=== PATIENT | male | born 1975 | race Caucasian/White ===

== ENCOUNTER 2020-05-11 09:17 | Observation (INO) | payer SELFPAY ==
[2020-05-11] VITALS (20 sets, daily range): BP systolic 102–142; BP diastolic 55–77; PULSE 69–100; RESP 11–28; TEMP 36.5–36.8; O2SAT 84–100; BMI 23.7
--- NOTE | 2020-05-11 09:28 | ED.ABDPAIN ---
HPI - Abdominal Pain General Chief Complaint: Nausea/Vomiting/Diarrhea Stated Complaint: abd pain, vomiting blood, was admitted in [place] Time Seen by Provider: 05/11/20 09:20 Source: patient Mode of arrival: Wheelchair Limitations: no limitations History of Present Illness HPI narrative: 44M smoker without significant medical history presents with multiple complaints which have been present for about a week or so, if not longer. He has significant left hip pain in the absence of injury. This pain has been gradually worsening and he denies any significant overuse or memorable injury. He states his pain is an 8/10 with ambulation or motion. He denies any numbness, tingling or weakness. Denies any back pain. He denies any numbness in his groin or trouble controlling bowel or bladder. He states that he was recently out of the country with his family to spread his father's ashes at their property in [place]. During this visit his mother, whom is in healthcare, encouraged him to seek medical care and he was apparently seen at a facility, received an MRI and orthopedic consultation suggesting left hip a vascular necrosis. Patient apparently had an episode of bright red emesis when he was leaving the above-stated evaluation and though they desperately wanted to admit him and performed endoscopy he demanded to leave and fly home to [facility]. He states he has had generalized abdominal discomfort and multiple episodes of hematemesis and bright red blood per his rectum since. He is not dizzy nor weak or lightheaded. He denies any history of alcohol or street drugs. He denies any history of bleeding ulcers or liver trouble. He takes no blood thinners MD complaint: abdominal pain, flank pain and other Onset (ago): week(s) Pain Consistency: constant Location: diffuse Severity: moderate Quality: cramping and aching Relieving factors: nothing Exacerbating factors: nothing Context: foreign travel Associated symptoms: nausea, vomiting, hematemesis and hematochezia Related Data Allergies Allergy/AdvReac Type Severity Reaction Status Date / Time iodine Allergy Verified 05/11/20 15:37 metoclopramide [From Reglan] Allergy Verified 05/11/20 15:37 prochlorperazine Allergy Verified 05/11/20 15:37 [From Compazine] Review of Systems Constitutional Constitutional: Denies chills, Denies fatigue, Denies fever(s), Denies frequent falls, Denies lethargy and Denies weakness Eyes Eyes: Denies change in vision, Denies eye discharge, Denies irritation and Denies loss of vision ENT Ears, Nose, Mouth, and Throat: Denies change in voice, Denies dizziness, Denies neck pain, Denies sore throat and Denies throat swelling Cardiovascular Cardiovascular: Denies chest pain, Denies irregular heart rhythm, Denies lightheadedness, Denies palpitations, Denies dyspnea, Denies dyspnea on exertion and Denies orthopnea Respiratory Respiratory: Denies cough, Denies dyspnea, Denies dyspnea on exertion and Denies wheezing Gastrointestinal Gastrointestinal: Reports abdominal pain, Denies change in bowel habits, Denies diarrhea, Reports nausea, Reports vomiting and Reports hematemesis Musculoskeletal Musculoskeletal: Reports abnormal gait, Reports limited range of motion, Denies neck pain and Denies numbness Integumentary/Breasts Skin/Breast: Denies pruritus, Denies erythema, Denies rash and Denies wounds Neurologic Neurologic: Reports abnormal gait, Denies behavioral changes, Denies confusion, Denies dizziness, Denies frequent falls, Denies loss of vision, Denies numbness and Denies weakness Psychiatric Psychiatric: Denies anxiety, Denies behavioral changes, Denies confusion, Denies depression, Denies homicidal ideation and Denies suicidal ideation Endocrine Endocrine: Denies fatigue, Denies flushing and Denies palpitations Hematologic/Lymphatic Hematologic/Lymphatic: Denies easy bruising Allergic/Immunologic Allergic/Immunologic: Denies urticaria, Denies throat swelling and Denies wheezing Patient History Medical History (Updated 05/11/20 @ 16:13 by Uziel Vasquez MD) Avascular necrosis of bones of both hips (Acute) Chronic back pain greater than 3 months duration (Acute) Depression (Acute) Social History Smoking Status: Former smoker Smoking Status: Former smoker alcohol intake frequency: 0-2 drinks per day Substance Use Type: does not use Exam Narrative Exam Narrative: GENERAL: [44] year old patient appears stated age. Well-nourished, well-developed patient, in mild distress. Anxious, rapid pressured speech HEAD: Atraumatic. Normocephalic. EYES: Pupils equal round and reactive. Extraocular motions intact. No scleral icterus. No injection or drainage. ENT: Nose without bleeding, purulent drainage. Throat without erythema, tonsillar hypertrophy or exudate. Airway patent. NECK: Trachea midline. Non tender CARDIOVASCULAR: Regular rate and rhythm without murmurs, gallops, or rubs. RESPIRATORY: Clear to auscultation. Breath sounds equal bilaterally. No wheezes, rales, or rhonchi. GASTROINTESTINAL: Abdomen soft, generalized tenderness, nondistended. RECTAL: no hemorrhoid or fissure. Bright red blood on exam, no melena. EXTREMITIES: No edema or joint tenderness. Left hip pain with passive or active range of motion. No obvious objective findings BACK: Nontender without deformity or crepitance. No flank tenderness. NEURO: AOx3. SKIN: No rash or erythema of visible areas, multiple excoriations Initial Vital Signs Initial Vital Signs: Vital Signs Temperature 97.7 F 05/11/20 09:30 Pulse Rate 100 H 05/11/20 09:30 Respiratory Rate 18 05/11/20 09:30 Blood Pressure 142/77 H 05/11/20 09:30 Pulse Oximetry 98 05/11/20 09:30 Course Orders Ordered: ED Orders 05/11/20 10:26 CT abdomen pelvis w con Stat 05/11/20 10:42 Urine Drug Screen, Rapid Stat 05/11/20 12:03 Consult to SALES CORRESPONDENT - Protective Services Case Worker Stat 05/11/20 15:45 Hemoglobin and Hematocrit Stat Lactated Ringer's (Lactated Ringers) 1,000 mls @ 42 mls/hr IV CONT CHANI Lactated Ringer's (Lactated Ringers) 1,000 mls @ 150 mls/hr IV CONT CHANI Last Infusion: 05/11/20 17:23 Dose: 150 mls/hr Documented by: Admin: 05/11/20 16:56 Dose: 150 mls/hr Documented by: BTONER Discontinued Medications Diphenhydramine HCl (Benadryl) 25 mg IV NOW ONE Stop: 05/11/20 11:40 Last Admin: 05/11/20 11:53 Dose: 25 mg Documented by: NIKKI Diphenhydramine HCl (Benadryl) 25 mg IV NOW ONE Stop: 05/11/20 12:51 Last Admin: 05/11/20 12:55 Dose: 25 mg Documented by: NIKKI Hydromorphone HCl (Dilaudid) 0.5 mg IV NOW ONE Stop: 05/11/20 10:39 Last Admin: 05/11/20 10:49 Dose: 0.5 mg Documented by: NIKKI Hydromorphone HCl (Dilaudid) 0.5 mg IV NOW ONE Stop: 05/11/20 13:48 Last Admin: 05/11/20 13:57 Dose: 0.5 mg Documented by: NIKKI Hydromorphone HCl (Dilaudid) 1 mg IV NOW ONE Stop: 05/11/20 15:23 Last Admin: 05/11/20 15:33 Dose: 1 mg Documented by: NIKKI Sodium Chloride (Normal Saline 0.9%) 1,000 mls @ 1,000 mls/hr IV BOLUS ONE Stop: 05/11/20 10:28 Last Infusion: 05/11/20 11:32 Dose: 0 mls/hr Documented by: Admin: 05/11/20 09:34 Dose: 1,000 mls/hr Documented by: NIKKI Famotidine (Pepcid) 20 mg in 50 mls @ 200 mls/hr IV NOW ONE Stop: 05/11/20 12:01 Last Infusion: 05/11/20 12:06 Dose: 0 mls/hr Documented by: Admin: 05/11/20 11:53 Dose: 200 mls/hr Documented by: NIKKI Methylprednisolone (Solu-Medrol 125 Mg Vial) 125 mg IV NOW ONE Stop: 05/11/20 11:40 Last Admin: 05/11/20 11:53 Dose: 125 mg Documented by: NIKKI Ondansetron HCl (Zofran) 4 mg IV NOW ONE Stop: 05/11/20 10:39 Last Admin: 05/11/20 10:49 Dose: 4 mg Documented by: NIKKI Pantoprazole Sodium (Protonix) 40 mg IV NOW ONE Stop: 05/11/20 09:30 Last Admin: 05/11/20 09:34 Dose: 40 mg Documented by: NIKKI Consultations Consultation #1: discussion with client application support engineer Gen Surgery given GI Bleed. He will take to OR for scope after COVID results Consultation #2: ortho consulted regarding AVN of B/L hips. Pain control as needed is only need for now. Consultation #3: Hospitalist happy to accept Vital Signs Vital signs: Vital Signs - 8 hr 05/11/20 11:00 05/11/20 11:39 05/11/20 11:40 Pulse Rate 93 H 91 H 91 H Respiratory Rate 28 H 25 H Blood Pressure 124/70 121/76 Pulse Oximetry 96 98 05/11/20 11:42 05/11/20 12:00 05/11/20 12:30 Pulse Rate 89 90 79 Respiratory Rate 18 15 25 H Blood Pressure 117/76 102/57 L 104/55 L Pulse Oximetry 100 96 95 05/11/20 13:00 05/11/20 13:30 Pulse Rate 74 74 Respiratory Rate 13 17 Blood Pressure 106/65 107/66 Pulse Oximetry 95 96 MDM - Abdominal Pain Lab Data Result diagrams: 05/11/20 15:45 05/11/20 09:40 Labs: Lab Results 05/11/20 05/11/20 05/11/20 Range/Units 09:40 09:40 10:42 WBC 5.3 (4.5-11.0) X10^3/uL RBC 4.07 L (4.5-5.9) X10^6/uL Hgb 11.2 L (13.5-17.5) g/dL Hct 34.2 L (41-53) % MCV 84.1 (80-100) fL MCH 27.5 (26-34) PG MCHC 32.7 (30-36) % RDW 16.6 H (11.6-14.8) % Plt Count 329 (150-400) X10^3/uL Neut % (Auto) 50.9 (50-75) % Lymph % (Auto) 25.3 (25-40) % Pacific % (Auto) 14.8 H (3-14) % Eos % (Auto) 8.5 H (2-4) % Baso % (Auto) 0.5 (0-2) % Neut # (Auto) 2700 (4530-6751) /uL Lymph # (Auto) 1300 (7355-2974) /uL Pacific # (Auto) 800 (0-900) /uL Eos # (Auto) 400 (0-450) /uL Baso # (Auto) 0 (0-100) /uL Sodium 135 L (137-145) mmol/L Potassium 4.4 (3.4-5.1) mmol/L Chloride 99 (98-107) mmol/L Carbon Dioxide 26 (22-32) mmol/L BUN 17 (9-20) mg/dL Creatinine 0.61 L (0.66-1.25) mg/dL Estimated GFR > 60.0 (>60) mL/min BUN/Creatinine Ratio 27.9 H (6-22) Glucose 136 H (70-100) mg/dL Calcium 10.1 (8.4-10.2) mg/dL Total Bilirubin 0.5 (0.2-1.3) mg/dL AST 55 (17-59) IU/L ALT 21 (<50) IU/L Alkaline Phosphatase 95 (38-126) U/L Total Protein 8.7 H (6.3-8.2) g/dL Albumin 4.9 (3.5-5.0) g/dL Globulin 3.8 (1.7-4.1) g/dL Albumin/Globulin Ratio 1.3 (1.0-2.8) Lipase 20 L (23-300) U/L U Opiates 300ng/mL cut Negative (Negative) Ur Oxycodone Screen Positive H (Negative) Urine Methadone Screen Negative (Negative) Ur Barbiturates Screen Negative (Negative) U Tricyclic Antidepress Negative (Negative) Ur Phencyclidine Scrn Negative (Negative) Ur Amphetamines Screen Negative (Negative) U Methamphetamines Scrn Negative (Negative) Ur MDMA Scrn (Ecstasy) Negative (Negative) U Benzodiazepines Scrn Positive H (Negative) Urine Cocaine Screen Negative (Negative) U Marijuana (THC) Screen Negative (Negative) COVID-19 PCR (Negative) 05/11/20 05/11/20 Range/Units 15:21 15:45 WBC (4.5-11.0) X10^3/uL RBC (4.5-5.9) X10^6/uL Hgb 10.9 L (13.5-17.5) g/dL Hct 33.1 L (41-53) % MCV (80-100) fL MCH (26-34) PG MCHC (30-36) % RDW (11.6-14.8) % Plt Count (150-400) X10^3/uL Neut % (Auto) (50-75) % Lymph % (Auto) (25-40) % Pacific % (Auto) (3-14) % Eos % (Auto) (2-4) % Baso % (Auto) (0-2) % Neut # (Auto) (8554-6403) /uL Lymph # (Auto) (6597-9536) /uL Pacific # (Auto) (0-900) /uL Eos # (Auto) (0-450) /uL Baso # (Auto) (0-100) /uL Sodium (137-145) mmol/L Potassium (3.4-5.1) mmol/L Chloride (98-107) mmol/L Carbon Dioxide (22-32) mmol/L BUN (9-20) mg/dL Creatinine (0.66-1.25) mg/dL Estimated GFR (>60) mL/min BUN/Creatinine Ratio (6-22) Glucose (70-100) mg/dL Calcium (8.4-10.2) mg/dL Total Bilirubin (0.2-1.3) mg/dL AST (17-59) IU/L ALT (<50) IU/L Alkaline Phosphatase (38-126) U/L Total Protein (6.3-8.2) g/dL Albumin (3.5-5.0) g/dL Globulin (1.7-4.1) g/dL Albumin/Globulin Ratio (1.0-2.8) Lipase (23-300) U/L U Opiates 300ng/mL cut (Negative) Ur Oxycodone Screen (Negative) Urine Methadone Screen (Negative) Ur Barbiturates Screen (Negative) U Tricyclic Antidepress (Negative) Ur Phencyclidine Scrn (Negative) Ur Amphetamines Screen (Negative) U Methamphetamines Scrn (Negative) Ur MDMA Scrn (Ecstasy) (Negative) U Benzodiazepines Scrn (Negative) Urine Cocaine Screen (Negative) U Marijuana (THC) Screen (Negative) COVID-19 PCR Negative (Negative) Point of care testing: Urine Dip Bedside Urine Glucose Negative Bedside Urine Bilirubin - Negative Bedside Urine Ketone - Negative Urine Specific [place] 1.015 Bedside Urine Occult Blood - Negative Bedside Urine pH 6.0 Bedside Urine Protein - Negative Bedside Urine Urobilinogen - Negative Bedside Urine Nitrite - Negative Bedside Urine Leukocytes - Negative Esterase Critical Care Time Critical Care Time Critical Care Time: Yes Total Critical Care Time: 30 Attestation: The high probability of a clinically significant, sudden or life threatening deterioration of the [GI/CV] system(s) required my full and direct attention, intervention and personal management. The aggregate critical care time was [30] minutes. This time is in addition to time spent performing reported procedures but includes the following: [X] Data Review and interpretation [X] Patient assessment and monitoring of vital signs [X] Documentation [X] Medication orders and management Discharge Plan Departure Clinical Impression: Acute GI bleeding Admit Date/Time: 05/11/20 17:36 Admit Provider: Manuela Cuellar
[2020-05-11] MEDS: PANTOPRAZOLE 40 MG VIAL IV ×2 (09:34→21:00)
[2020-05-11] MEDS: SODIUM CHLORIDE 0.9% 1,000 ML 1000 ML IV (09:34)
[2020-05-11 10:01] LABS: Add Manual Diff / Slide Review NO; Basophils Absolute Auto 0 /uL (0-100); Basophils Percent Auto 0.5 % (0-2); Eosinophils Absolute Auto 400 /uL (0-450); Eosinophils Percent Auto 8.5 % (2-4); Hematocrit 34.2 % (41-53); Hemoglobin 11.2 g/dL (13.5-17.5); Lymphocytes Absolute Auto 1300 /uL (1100-4500); Lymphocytes Percent Auto 25.3 % (25-40); Mean Corpuscular HGB Conc 32.7 % (30-36); Mean Corpuscular Hemoglobin 27.5 PG (26-34); Mean Corpuscular Volume 84.1 fL (80-100); Monocytes Absolute Auto 800 /uL (0-900); Monocytes Percent Auto 14.8 % (3-14); Neutrophils Absolute Auto 2700 /uL (1500-7000); Neutrophils Percent Auto 50.9 % (50-75); Platelet Count 329 X10^3/uL (150-400); Red Blood Cell Count 4.07 X10^6/uL (4.5-5.9); Red Cell Distribution Width 16.6 % (11.6-14.8); White Blood Cell Count 5.3 X10^3/uL (4.5-11.0)
--- NOTE | 2020-05-11 10:05 | PC.NURSE ---
Pt requesting to speak to proved.Dr dee in room speaking to pt.
[2020-05-11 10:07] LABS: Alanine Aminotransferase 21 IU/L (<50); Albumin 4.9 g/dL (3.5-5.0); Albumin Globulin Ratio 1.3 (1.0-2.8); Alkaline Phosphatase 95 U/L (38-126); Aspartate Aminotransferase 55 IU/L (17-59); BUN Creatinine Ratio 27.9 (6-22); Bilirubin Total 0.5 mg/dL (0.2-1.3); Blood Urea Nitrogen 17 mg/dL (9-20); Calcium 10.1 mg/dL (8.4-10.2); Carbon Dioxide 26 mmol/L (22-32); Chloride 99 mmol/L (98-107); Estimated Glomerular Filt Rate > 60.0 mL/min (>60); Globulin 3.8 g/dL (1.7-4.1); Glucose 136 mg/dL (70-100); Lipase 20 U/L (23-300); Potassium 4.4 mmol/L (3.4-5.1); Sodium 135 mmol/L (137-145); Total Protein 8.7 g/dL (6.3-8.2)
[2020-05-11 10:14] LABS: HEMOLYSIS 55 (0-50)
--- NOTE | 2020-05-11 10:26 | DI.CT.S_ITS ---
PROCEDURE: CT ABDOMEN PELVIS W CON INDICATIONS: severe abdominal pain with vomiting TECHNIQUE: After the administration of intravenous contrast, 5 mm thick sections acquired from the diaphragm to the symphysis. 5 mm coronal and sagittal reformats were acquired. For radiation dose reduction, the following was used: automated exposure control, adjustment of mA and/or kV according to patient size. COMPARISON: None. FINDINGS: Image quality: There are motion artifacts. ABDOMEN: Lung bases: Lung bases are clear. Heart size is normal. Solid organs: Liver is normal in size and enhancement. Gallbladder is normal. Biliary system is non dilated. Pancreas enhances normally. Spleen is normal in size and enhancement. No adrenal nodules. There are bilateral renal stones. Kidneys demonstrate normal size and enhancement, without hydronephrosis. Peritoneum and bowel: Appendix is absent. There is a moderate to large amount of stool in colon. Bowel loops demonstrate normal wall thickness and caliber. No free fluid or air. Nodes and vessels: No retroperitoneal or mesenteric adenopathy by size criteria. Aorta and inferior vena cava are normal in size. Miscellaneous: No ventral hernias. PELVIS: Genitourinary: Bladder wall thickness is normal. Miscellaneous: No inguinal hernias or adenopathy. Bones: Mixed lucency and sclerosis in the femoral heads bilaterally consistent with avascular necrosis. No vertebral body compression fractures. IMPRESSION: 1. No acute process in abdomen or pelvis. 2. Nephrolithiasis bilaterally. No hydronephrosis. 3. A moderate to large amount of stool in colon. 4. Avascular necrosis of the femoral heads bilaterally. The result was discussed with Dr. Moore. Dictated by: Brooke Ta M.D. on 05/11/2020 at 11:54 Approved by: Brooke Ta M.D. on 05/11/2020 at 13:12
--- NOTE | 2020-05-11 10:43 | PC.NURSE ---
isotope technologist in room to take pt to CT. Pt refused at this time saying he was in too much pain and nauseated. Pt states that you aren't doing anything to help. He said I already know whats wrong but this pain is the worst pain of my life and you aren't doing anything to help it. Dr Moore aware
--- NOTE | 2020-05-11 10:45 | PC.NURSE ---
Pt requesting to speak to powerhouse attendant. parris Posada in room speaking with pt
[2020-05-11] MEDS: ONDANSETRON 4 MG/2 ML INJ IV (10:49)
[2020-05-11] MEDS: HYDROMORPHONE 0.5 MG INJ IV ×2 (10:49→13:57)
[2020-05-11 11:15] LABS: UR Morphine/Opiate cutoff 300 Negative (Negative); Ur Creatinine Normal (Normal); Ur Specific Gravity Normal (Normal); Urine Amphetamines Negative (Negative); Urine Cocaine Negative (Negative); Urine Methamphetamines Negative (Negative); Urine Phencyclidine Negative (Negative); Urine Tetrahydrocannabinol Negative (Negative); Urine pH Normal (Normal)
[2020-05-11 11:16] LABS: Urine Barbiturates Negative (Negative); Urine Benzodiazepines Positive (Negative); Urine MDMA Negative (Negative); Urine Methadone Negative (Negative); Urine Oxycodone Positive (Negative); Urine Tricyclic Antidepressant Negative (Negative)
--- NOTE | 2020-05-11 11:25 | PC.NURSE ---
pt requested to speak with powerhouse operator, I entered patient's room upon hearing request. Pt stated that he was upset about not getting pain medication, that his father recently after multiple visits to the hospital without proper treatment, and he feels he is not being listened to. During my 25 min conversation with the patient, he disclosed that he has recently returned from [place] where he was helping his mother with a rental, his mother is a director at formerly [facility], he has been on a pain contract with Dr Tiny Castaneda (sp), he had an MRI in [place] that resulted in a diagnosis of avascular necrosis but does not have a cd of the [employer], and has been vomiting blood for months . Pt is tangential in his speech and difficult to follow. Pt stated his primary care provider was Tiny Castaneda and became upset at the thought of the provider being called. I explained the benefits of contacting pcps and how their input can be valuable in the patient's care. Pt requested multiple times for her not to be called, stating he has not seen her in many years and there would be no benefit. When asked who was prescribing his current medications he gave multiple answers and then stated he is not seeing anything. Patient had 3 reasons for checking in, nausea, vomitting blood, and pain in his hips. I discussed with patient what we are doing, including medications that are being given, for the issues he is expereince. I let patient know the CT that is ordered is needed to continue his care. Pt became upset shortly after stating it was unreasonable for him to wait [address] to open up. I expressed we are going as quick as we can.
--- NOTE | 2020-05-11 11:45 | PC.NURSE ---
Addendum entered by Miracle Shrestha R.N. 05/11/20 12:08: Pt informed staff after returning from CT that he had a hx of allergic reaction with CT contrast but forgot to tell us. He stated When you asked me if I had any allergies i was only thinking about medication allergies. Original Note: Pt returned from CT and told staff that he was having an allergic reaction. Pt c/o itching of face and throat. Pt able to swallow and there is not any swelling noted of throat or tongue. Pts lungs clear. Dr Moore aware and ordered allergic reaction medications.
[2020-05-11] MEDS: methylPREDNISolone 125 MG/2 ML VIAL IV (11:53)
[2020-05-11] MEDS: diphenhydrAMINE 50 MG/ML VIAL 25 MG IV ×2 (11:53→12:55)
[2020-05-11] MEDS: FAMOTIDINE 20 MG/50 ML PIGGYBACK 200 MG IV (11:53)
--- NOTE | 2020-05-11 11:58 | PC.NURSE ---
Pt hit call light,I entered room and asked how could I help him. he stated I need more benadryl. Pt stated I told you that i needed 50mg benadryl,you only gave me 25mg. . I informed him that we don't normally give 50mg to start off. Pt then stated Well I guess I should have just told you to start wtih 50mg. When this happened before they gave me 50mg of benadryl. Dr Moore aware. I asked him if he is getting worse he stated no but I'm not better yet.
--- NOTE | 2020-05-11 12:23 | PC.NURSE ---
Pt requesting more pain medications. Dr Moore aware
--- NOTE | 2020-05-11 12:48 | PC.NURSE ---
Pt pushed call light, i entered room to see what he needed. Pt states that he still needs something for pain. I informed him that the provider is aware and as soon as something is ordered i would bring it in. Pt stated my throat is getting worse and you all don't even care. I informed him that twice we have come in after he hit his call light and he told us he wanted something for pain and mentioned nothing of his throat getting worse,rather he stated that its just not any better.
--- NOTE | 2020-05-11 12:56 | PC.NURSE ---
While giving pt second dose of benadryl pt stated that it alfaro. I immidiately stopped pushing it. I was attempting to flush the IV to check for patency when pt stated just give the rest of it,you almost gave it all anyway. I informed him that I needed to check IV patency first. I flushed the IV and pt denied pain with flushing. Gave the remainder of benadryl IV. Pt denied pain with remainder of IV
--- NOTE | 2020-05-11 15:30 | PM.CN ---
History of Present Illness Consult details Date Patient Seen: 05/11/20 Time Patient Seen: 15:30 Chief complaint: abd pain, vomiting blood, was admitted in [place] Reason for consult: Hematemesis Requesting provider: Saúl Moore Narrative: The patient is a gentleman who was traveling in [place] due to his father's . He apparently developed intestinal bleeding there and was hospitalized and has come home and presents with multiple episodes of hematemesis and blood in his stool around normal brown stool. The vomiting is a little brown but also contains bright red blood. He has been having a lot of abdominal pain especially upper abdominal pain. He has never had GI and bleeding before. He is not on any blood thinners. He does not take nonsteroidal anti-inflammatory agents or any supplements that might cause him to bleed. He has not been noted to have hematemesis in the ER where he has been for 6 hours awaiting test results and evaluation. He apparently declined repeat hematocrit after fluids. Meds Home Medications and Allergies Allergies Allergy/AdvReac Type Severity Reaction Status Date / Time iodine Allergy Verified 05/11/20 15:37 metoclopramide [From Reglan] Allergy Verified 05/11/20 15:37 prochlorperazine Allergy Verified 05/11/20 15:37 [From Compazine] Review of Systems Review of Systems Narrative: Patient has occasional visual changes that are fleeting. This is principally double vision as best I can tell. He blinks and it goes away. No pain in his eyes or earaches, sore throat, tooth aches, trouble swallowing. No asthma or cough. No unusual shortness of breath. No chest pain or murmurs. Normally has a good appetite and has normal brown bowel movements. No dysuria hematuria or history kidney stones. He has chronic left hip pain and more recent right hip pain. He has been told he has avascular necrosis. He describes a jerking disorder that he has in his mother slap same and he responds and it stops. Has not had syncope. He has some numbness in his arms and hands at times. He has chronic back pain related to a work related injury. He opted to take a financial settlement rather than have surgery. Suffers from anxiety and depression. Is on medicine his shins for same. Exam Vital Signs (past 8 hours): - 05/11/20 09:30 05/11/20 09:50 05/11/20 10:00 Temperature 97.7 F Pulse Rate 100 H 97 H 98 H Respiratory Rate 18 17 28 H Blood Pressure 142/77 H Pulse Oximetry 98 96 94 05/11/20 10:30 05/11/20 11:00 05/11/20 11:39 Temperature Pulse Rate 92 H 93 H 91 H Respiratory Rate 23 28 H Blood Pressure 124/70 Pulse Oximetry 95 96 05/11/20 11:40 05/11/20 11:42 05/11/20 12:00 Temperature Pulse Rate 91 H 89 90 Respiratory Rate 25 H 18 15 Blood Pressure 121/76 117/76 102/57 L Pulse Oximetry 98 100 96 05/11/20 12:30 05/11/20 13:00 05/11/20 13:30 Temperature Pulse Rate 79 74 74 Respiratory Rate 25 H 13 17 Blood Pressure 104/55 L 106/65 107/66 Pulse Oximetry 95 95 96 Oxygen Delivery Method Room Air Narrative Exam Narrative: Cooperative no apparent distress. Thought processes are little confabulated. His eyes are nonicteric. Pupils equal round reactive to light. Conjunctivae are pink. Ears without lesion. Nasal septum midline. Oral mucosa is pink moist no open lesions. Teeth are intact. He has a lesion in his left upper lip near midline. It is in a regular sore that involves both of the lip and the skin above it. There is some induration there but no pus and I appreciate no abscess. His neck is supple. I feel no nodes in the neck or supraclavicular areas. Trachea is midline mobile. Thyroid is not enlarged. Lungs are clear to auscultation without rales or rhonchi. Equal percussion. Heart regular rate and rhythm without murmur gallop. No heave lift or thrill. Abdomen is scaphoid. Difficult to tell that is tender. Hyperactive bowel sounds. No hernias appreciated. Liver and spleen are not obviously enlarged. Patient's testes are without mass there is no recurrence of her hernia but he was examined in the supine position. There are no penile lesions. Rectal is reported by the ER physician to have bright red blood on the finger tip. Patient is alert and oriented but somewhat irritable. It is difficult him it for him to lay still and his conversations sometime wonders off topic. Extremities there is no cyanosis clubbing or edema. Normal pulses 2+ at the wrist. No obvious bony abnormality on palpation. His quadriceps e-mail little bit under developed. Skin has multiple small ulcers on the extremities torso and scrotum. This is in addition to the 1 on the lip. No discoloration. No abscesses. All these ulcerations are dry. Objective Imaging CT scan - abdomen: My impression: Patient has a large amount of intestinal contents from his stomach distally. He has some kidney stones and apparently has a vascular necrosis of his hips Labs Result Diagrams: 05/11/20 09:40 05/11/20 09:40 Labs: Laboratory Results - last 24 hr 05/11/20 05/11/20 05/11/20 09:40 09:40 10:42 WBC 5.3 RBC 4.07 L Hgb 11.2 L Hct 34.2 L MCV 84.1 MCH 27.5 MCHC 32.7 RDW 16.6 H Plt Count 329 Neut % (Auto) 50.9 Lymph % (Auto) 25.3 Hudspeth % (Auto) 14.8 H Eos % (Auto) 8.5 H Baso % (Auto) 0.5 Neut # (Auto) 2700 Lymph # (Auto) 1300 [place] # (Auto) 800 Eos # (Auto) 400 Baso # (Auto) 0 Sodium 135 L Potassium 4.4 Chloride 99 Carbon Dioxide 26 BUN 17 Creatinine 0.61 L Estimated GFR > 60.0 BUN/Creatinine Ratio 27.9 H Glucose 136 H Calcium 10.1 Total Bilirubin 0.5 AST 55 ALT 21 Alkaline Phosphatase 95 Total Protein 8.7 H Albumin 4.9 Globulin 3.8 Albumin/Globulin Ratio 1.3 Lipase 20 L U Opiates 300ng/mL cut Negative Ur Oxycodone Screen Positive H Urine Methadone Screen Negative Ur Barbiturates Screen Negative U Tricyclic Antidepress Negative Ur Phencyclidine Scrn Negative Ur Amphetamines Screen Negative U Methamphetamines Scrn Negative Ur MDMA Scrn (Ecstasy) Negative U Benzodiazepines Scrn Positive H Urine Cocaine Screen Negative U Marijuana (THC) Screen Negative Assessment & Plan Assessment and plan (1) Avascular necrosis of bones of both hips: Problem details: Recommend orthopedic consult Status: Acute (2) Acute GI bleeding: Problem details: Planning to do an EGD. Awaiting the results of his COVID testing given his recent travel. Waiting repeat hematocrit. Status: Acute (3) Depression: Problem details: Recommend continuation of meds Status: Acute (4) Anxiety: Problem details: Recommend continuation of meds Status: Acute (5) Chronic back pain greater than 3 months duration: Problem details: Recommend orthopedic evaluation Status: Acute
[2020-05-11] MEDS: HYDROMORPHONE 1 MG INJ IV ×2 (15:33→20:48)
--- NOTE | 2020-05-11 15:38 | PC.NURSE ---
Went to pts room to give him IV dilaudid. Pt stated, thats not reglan or compazine is it? I told him no that it was dilaudid and asked him why he was saying that. He stated I'm allergic to them. I asked him why he didn't tell us that when we asked him if he had any allergies. He said I told you the other girl that at triage. I informed him that I was in the room when he was being triaged and he said he wasn't allergic to anything. Updated allergies in medical record
[2020-05-11 15:54] LABS: Hematocrit 33.1 % (41-53); Hemoglobin 10.9 g/dL (13.5-17.5)
--- NOTE | 2020-05-11 16:15 | PM.PREOP ---
Pre-operative Note COVID-19 COVID-19 status: Result pending Interval Note History & Physical reviewed/Exam performed by Physician: Yes Changes to H&P: No
--- NOTE | 2020-05-11 16:45 | PC.NURSE ---
The patient wanted me to tell the dr his throat was itchy. i reported that to dr dee, no new orders noted. i let the patient know i had no new orders yet. as i closed the door he asked for a phone and what time is surgery. i said i'll check closed the door and he yelled kameron footeot
[2020-05-11 16:46] LABS: COVID19 -Nasal RAPID Negative (Negative)
--- NOTE | 2020-05-11 16:49 | PC.NURSE ---
provided patient a landline phone.
[2020-05-11] MEDS: LACTATED RINGERS 1,000 ML 150 ML IV (16:56)
--- NOTE | 2020-05-11 17:58 | DI.RAD.S_ITS ---
PROCEDURE: XR CHEST 1V INDICATIONS: central line placement TECHNIQUE: One view of the chest was acquired. COMPARISON: None. FINDINGS: Surgical changes and devices: Left subclavian central venous catheter tip is in upper SVC. Lungs and pleura: Lungs are clear. No pleural effusions or pneumothorax. Mediastinum: Mediastinal contours appear normal. Heart size is normal. Bones and chest wall: No suspicious bony lesions. Overlying soft tissues appear unremarkable. IMPRESSION: Left-sided central venous catheter tip is in SVC. No pneumothorax. Dictated by: Shahab Calzada M.D. on 05/11/2020 at 18:16 Approved by: Shahab Calzada M.D. on 05/11/2020 at 18:16
[2020-05-11] MEDS: LACTATED RINGERS 1,000 ML 42 ML IV (18:00)
--- NOTE | 2020-05-11 18:21 | PM.OP.ENDO ---
Operative Date/Time/Diagnoses Date of procedure: 05/11/20 Time of procedure: 18:22 Pre-op diagnosis: Upper GI bleed by history Post-op diagnosis: same (Mild gastritis in the area of the pyloric channel. No source of bleeding from his upper tract is seen.) Procedure & Clinicians Study performed: Placement of left subclavian central venous catheter and upper GI endoscopy (EGD) Same procedure as scheduled: No (Subclavian placement added because the patient had no peripheral IV access.) Indications: Determine source of hematemesis described in his history Surgeon: Uziel Vasquez Procedure Notes SCOAP/Timeout: Performed Procedure in detail: After attempting to place IVs in his arms and feet it was clear that there were no sites. An attempt at a left internal jugular also failed as the vein appeared to be thrombosed. He had a sore in his right neck. Therefore I decided to place a left subclavian catheter. Area was prepped and draped in a sterile fashion. Local anesthetic was infiltrated beneath the left clavicle and under it. Needle was inserted on the 2nd attempt into the subclavian vein. Guidewire was passed through the syringe and needle and the syringe and needle were removed. A small daphnie was made in the skin adjacent to the guidewire and a dilator was passed over it and removed. The catheter is then passed over the guidewire to a depth of 15 cm in the guidewire was removed leaving the catheter in place. We aspirated and flushed all 3 lines without difficulty. The line was secured to the chest wall with 3 0 silk sutures. Dressing was applied. Chest x-ray was performed immediately and showed the line to be in the superior vena cava with no evidence of a pneumothorax. The patient then underwent general endotracheal anesthesia to protect his airway. CT scan preoperatively showed a large dilated stomach full of contents. Bite block was inserted adjacent to the ET tube and the endoscope Endoscope was passed through it. The esophagus was normal. GE junction noted at the 40 cm cornel from the incisors. I saw no evidence of any inflammation of the esophagus or of varices. The stomach insufflated well. There was no blood within it. There was mild inflammation near the pyloric channel. Carefully examining this area however I could not identify an ulcer. The duodenum was absolutely pristine looking to the 4th part. The scope was gradually brought back into the stomach and the duodenal bulb examined again and I still saw no lesions. The pylorus was examined again and it was only mildly inflamed. I carefully examined the incisura and the proximal stomach and both were normal in appearance. Scope was straightened the stomach re-examined and then ran the scope was removed. No additional findings of the esophagus. The patient was extubated and taken the recovery area in good condition. Scope withdrawal time: Not applicable Sedation minutes: 0 (General anesthesia) Findings: gastritis (Very mild and not the source of bleeding) Specimen(s): none sent Complications: none Post-procedure Recommendations: Other recommendation (Will prep for colonoscopy) Plan for aftercare: Admitting to Medicine for lower GI workup Disposition: PACU
[2020-05-11] MEDS: fentaNYL 100 MCG/2 ML INJ IV (19:08)
--- NOTE | 2020-05-11 19:32 | SUR.PREOP ---
Patient is continuing to yell at nurse, frustrated, demanding pain medications. This nurse has told patient multiple times that he has pain medications ordered for the floor. This nurse explained to patient that he has valium, dilaudid and oxycodone ordered for floor. Patient still states that that's not enough pain medication, that's not enough time. Patient states that he is going to call the news station, that he needs something for anxiety. Patient continues to be agitated and refuses to listen to the nursing staff. Security and charge nurse called for assistance. Patient states that I'm not going upstairs until I get relief from my hip pain. Advised patient that yes, he is going upstairs so that the nurses can transfer his orders for pain medication on the inpatient status. Security and occupational health nursing director to PACU to assist for transfer.
--- NOTE | 2020-05-11 20:17 | SUR.PHASEI ---
1999) late entry: After transferring patient to ICU, rm 227, patient continues to yell at nursing staff, arguing, demanding pain medication, demanding his anxiety medication. Patient states that he is going to call my mom and report nursing staff. Security remains at bedside to assist. Any attempts to explain to patient the process for medication administration are met with anger and refusal to listen to nursing staff. Francine omnterroso called for combativeness. While nurses are attempting to receive a full report regarding events regarding patient's history, patient gets out of bed and stands on his feet. Assisted patient back to bed. ICU nursing staff receiving patient.
[2020-05-11] MEDS: DEXTROSE 5%-LACTATED RINGERS 1,000 ML 100 ML IV (20:33)
[2020-05-11 20:39] LABS: Add Manual Diff / Slide Review NO; Basophils Absolute Auto 0 /uL (0-100); Basophils Percent Auto 0.2 % (0-2); Eosinophils Absolute Auto 0 /uL (0-450); Eosinophils Percent Auto 0.2 % (2-4); Hematocrit 33.5 % (41-53); Hemoglobin 10.9 g/dL (13.5-17.5); Lymphocytes Absolute Auto 700 /uL (1100-4500); Lymphocytes Percent Auto 17.7 % (25-40); Mean Corpuscular HGB Conc 32.6 % (30-36); Monocytes Absolute Auto 100 /uL (0-900); Monocytes Percent Auto 2.2 % (3-14); Neutrophils Absolute Auto 3200 /uL (1500-7000); Neutrophils Percent Auto 79.7 % (50-75); Platelet Count 321 X10^3/uL (150-400); Red Blood Cell Count 4.04 X10^6/uL (4.5-5.9); Red Cell Distribution Width 16.2 % (11.6-14.8)
[2020-05-11] MEDS: diphenhydrAMINE 50 MG/ML VIAL IV (20:51)
[2020-05-11] MEDS: MAGNESIUM HYDROXIDE 30 ML UDC PO (20:52)
[2020-05-11] MEDS: PEG3350/SOD SULF,BICARB,CL/KCL 4,000 ML SOLUTION 2000 ML PO (21:19)
[2020-05-11] MEDS: diazePAM 10 MG/2 ML SYRINGE 5 MG IV (21:41)
--- NOTE | 2020-05-11 23:08 | PC.NURSE ---
Addendum entered by Tammy Vega R.N. 05/12/20 02:18: 0215- Patient reminded to continue his prep. Patient becomes hostile when reminded. Addendum entered by Tammy Vega R.N. 05/12/20 01:42: 0145- Physical assessment defered due to patient agression. Will monitor. Addendum entered by Tammy Vega R.N. 05/12/20 01:35: 0135- Patient verbally combative and abusive. Patient asked to have his Benadryl. Explained the order was for every 4 hours a change that was made per his request earlier. Patient unhappy with this order and wants it changed back to every 6hr 50mg IV. Patient will not listen to explanation RN left the room when he became verbally agressive. Original Note: 4030- Patient is impulsive and goes from calm to agitated and agressive with staff. Two code monterroso called when patient escalated yelling and pressured speech. Patient advised that he may not have the doors closed and curtain closed as he is not safe. Psych eval ordered by Ana Mensah. Patient is taking a bowel prep at this time. Long discussion with Ana Mensah regarding patients labile outburst. Patient is requesting to close his door and curtain. I feel this is unsafe as patient is not using his call light and is labile. Patient has also had a great amount of medication this in conjunction with his agitation he is a high risk for fall. Ana has ordered additional pain medication. Patient will be medicated as ordered.
[2020-05-11] MEDS: HYDROMORPHONE 2 MG INJ IV (23:34)
[2020-05-12] MEDS: diphenhydrAMINE 50 MG/ML VIAL 25 MG IV ×4 (00:10→11:47)
[2020-05-12 00:19] VITALS: BP 108/56; PULSE 95; RESP 16; TEMP 36.6; O2SAT 91
--- NOTE | 2020-05-12 01:06 | P.HP_ITS ---
History of Present Illness History of Present Illness Date Patient Seen: 05/11/20 Time Patient Seen: 22:30 Chief complaint: abd pain, vomiting blood, was admitted in [place] Narrative: Sampson Villa is a 44-year-old male who presented to the emergency department with a complaint of hematemesis and hematochezia. He states that he just arrived back from [facility] after having brought his late father's ashes and apparently spent a short stay at a local hospital there due to the same problem. Due to the hospital requiring grady payment, the patient opted to return to the [facility] to have a further medical workup. In the process of his stay in the medical facility in [place], they did an x-ray and told him he had osteonecrosis of the left hip. The patient has a stated history of chronic lumbar pain, work related injury of the right shoulder for whom he has not sought surgical attention, in his severe anxiety. He stated that while he was in the health care facility in [place], he saw a psychiatrist who recommended that he start a course of Seroquel and lithium. He stated that they thought he had depression, anxiety and bipolar. The patient also has history of having gone to a pain clinic and was apparently taking high-dose oxycodone, and alp razolam. He states that he is no longer taking alprazolam and has not been on it since he left for [place] as he ran out. In the emergency department Dr. Vasquez was consulted and performed an upper endoscopy which was negative for any upper GI bleed and recommended bowel prep for a lower GI scope on 05/12. I received a phone call from Dr. Vasquez who requested that we order a psych consult on the patient as he woke up from anesthesia very agitated and yelling at the nurses. The patient did calm down when I was in the room with him and asked me a number of questions about the avascular necrosis. The patient has had a history of weight training and competition and has taken supplements in the past which ephedrine and possibly steroids. He denies a history of IV drug use. He denies a family history of avascular necrosis. Vital signs: Temp is 97.8?, blood pressure 108/56, heart rate 95, respiratory rate 16, oxygen saturation of 91% on 2 L, P is 70 7.1 kg with a BMI of 23.7. WBC is 4.0, RBC 4.04, hemoglobin 10.9, hematocrit 33.5, platelet count 321. Sodium 135, potassium 4.4, chloride 99, CO2 26, BUN 17, creatinine 0.61, GFR greater than 60, glucose 136, calcium 10.1, total bili 0.5, AST 55, ALT 21, alk- phos 95, lipase 20, COVID-19 negative. Toxicology was positive for oxycodone and benzodiazepines. Patient History Medical History Avascular necrosis of bones of both hips (Acute) Chronic back pain greater than 3 months duration (Acute) Depression (Acute) Family & Social History Social History: household members significant other Prior Living Arrangements House Safety & Behavioral: Feels Safe in Current Yes Environment Been Physically Hurt or No Threatened By a Person Suicidal Ideation Description None Suicide Plan Description No Plan Tobacco & Substance use: Smoking Status Former smoker alcohol intake frequency 0-2 drinks per day Substance Use Type previously seen by a pain clinic Meds Home Medications and Allergies Allergies Allergy/AdvReac Type Severity Reaction Status Date / Time iodine Allergy Verified 05/11/20 15:37 metoclopramide [From Reglan] Allergy Verified 05/11/20 15:37 prochlorperazine Allergy Verified 05/11/20 15:37 [From Compazine] Review of Systems Review of Systems ROS: Yes unobtainable due to mental status (Patient was very agitated and difficult to obtain a review of systems.) Exam Vital Signs (past 8 hours): - 05/11/20 18:30 05/11/20 18:35 05/11/20 18:41 Temperature Pulse Rate 86 72 72 Respiratory Rate 16 15 13 Blood Pressure 104/59 L 117/61 121/72 Pulse Oximetry 84 L 100 99 05/11/20 18:44 05/11/20 18:50 05/11/20 19:00 Temperature Pulse Rate 69 71 74 Respiratory Rate 16 14 16 Blood Pressure 114/70 112/63 122/72 Pulse Oximetry 97 95 95 05/11/20 19:10 05/11/20 19:50 05/12/20 00:19 Temperature 98.2 F 97.8 F Pulse Rate 79 95 H Respiratory Rate 11 L 16 Blood Pressure 115/71 108/56 L Pulse Oximetry 95 91 Oxygen Delivery Method Room Air Oxygen Flow Rate 2 Narrative Exam Narrative: Gen: Alert, oriented, Thin 44 y.o. male, anxious and agitated at times HEENT: normocephalic, atraumatic, conjunctiva clear, sclera non-icteric, oral mucosa pink and moist, has upper lip healing scar near the frenulum Neck: supple, full ROM, no JVD, trachea is midline Resp: Lungs CTA, non-labored breathing CV: RRR, no murmur or rubs Abd: soft, non-tender, normoactive BTs Skin: Multiple superficial lacerations of his upper and lower extremities Neuro: Alert and oriented X 4 w/no focal deficits. Speech clear and coherent. Extremities: moves all 4 extremities, is ambulatory, negative Miller?s sign Psyche: Agitated, has caused 2 Code greys, but calms down with me Objective Labs Result Diagrams: 05/11/20 20:30 05/11/20 09:40 Labs: Laboratory Results - last 24 hr 05/11/20 05/11/20 05/11/20 09:40 09:40 10:42 WBC 5.3 RBC 4.07 L Hgb 11.2 L Hct 34.2 L MCV 84.1 MCH 27.5 MCHC 32.7 RDW 16.6 H Plt Count 329 Neut % (Auto) 50.9 Lymph % (Auto) 25.3 [place] % (Auto) 14.8 H Eos % (Auto) 8.5 H Baso % (Auto) 0.5 Neut # (Auto) 2700 Lymph # (Auto) 1300 [place] # (Auto) 800 Eos # (Auto) 400 Baso # (Auto) 0 Sodium 135 L Potassium 4.4 Chloride 99 Carbon Dioxide 26 BUN 17 Creatinine 0.61 L Estimated GFR > 60.0 BUN/Creatinine Ratio 27.9 H Glucose 136 H Calcium 10.1 Total Bilirubin 0.5 AST 55 ALT 21 Alkaline Phosphatase 95 Total Protein 8.7 H Albumin 4.9 Globulin 3.8 Albumin/Globulin Ratio 1.3 Lipase 20 L U Opiates 300ng/mL cut Negative Ur Oxycodone Screen Positive H Urine Methadone Screen Negative Ur Barbiturates Screen Negative U Tricyclic Antidepress Negative Ur Phencyclidine Scrn Negative Ur Amphetamines Screen Negative U Methamphetamines Scrn Negative Ur MDMA Scrn (Ecstasy) Negative U Benzodiazepines Scrn Positive H Urine Cocaine Screen Negative U Marijuana (THC) Screen Negative COVID-19 PCR 05/11/20 05/11/20 05/11/20 15:21 15:45 20:30 WBC 4.0 L RBC 4.04 L Hgb 10.9 L 10.9 L Hct 33.1 L 33.5 L MCV 83.0 MCH 27.0 MCHC 32.6 RDW 16.2 H Plt Count 321 Neut % (Auto) 79.7 H D Lymph % (Auto) 17.7 L [place] % (Auto) 2.2 L Eos % (Auto) 0.2 L Baso % (Auto) 0.2 Neut # (Auto) 3200 Lymph # (Auto) 700 L [place] # (Auto) 100 Eos # (Auto) 0 Baso # (Auto) 0 Sodium Potassium Chloride Carbon Dioxide BUN Creatinine Estimated GFR BUN/Creatinine Ratio Glucose Calcium Total Bilirubin AST ALT Alkaline Phosphatase Total Protein Albumin Globulin Albumin/Globulin Ratio Lipase U Opiates 300ng/mL cut Ur Oxycodone Screen Urine Methadone Screen Ur Barbiturates Screen U Tricyclic Antidepress Ur Phencyclidine Scrn Ur Amphetamines Screen U Methamphetamines Scrn Ur MDMA Scrn (Ecstasy) U Benzodiazepines Scrn Urine Cocaine Screen U Marijuana (THC) Screen COVID-19 PCR Negative Assessment & Plan Assessment & Plan narrative: Sampson Villa will be admitted for further evaluation of hematochezia. Upper GI bleed was ruled out today after having undergone an endoscopy. Suspected lower GI bleed, acute, unknown if present on admission -patient is administered does lightly overnight to clear his bowels. Imaging studies appear to note that he had a large amount of stool in his colon and revi castillo and exam note though he had a mildly guaiac-positive stool the examiner noted that it was hard stool -Dr. Reid stated Dr. Sorensen will perform the lower GI scope on 05/12 Avascular necrosis bilaterally, acute, present on admission -this was seen on x-ray -Per patient, his mother has set him up with an orthopedic surgeon at [facility]. Recommend contacting the mother in the morning to find out who that surgeon is and to make a referral for the patient possibly transfer for further workup. Chronic pain syndrome with chronic and continuous opioid use and dependency -the patient will receive Dilaudid 2 mg q.3 hours as needed for pain, ketorolac 30 mg Q 6 hours as needed for pain, acetaminophen 650 mg p.o. q.6 hours as needed for pain Anxiety -I have discussed with the patient that I will be discontinuing alprazolam as he stopped taking it a number of days ago -he may have diazepam 5 mg Q 6 hours as needed for anxiety and Benadryl 25 mg q.4 hours as needed Unknown psychiatric condition, acute, present on admission -I have requested a Psychiatry consult. This was discussed with patient and he is open to meeting with Dr. Duff or his staff to review medications to help stabilize his moods. -please contact Dr. Duff in the morning Agitation, acute, present on admission -Patient has been advised that further outbursts with nursing may result in a call to 911 as security will not be able to intervene. I have also requested they contact Crisis if necessary. -He has a high likelihood of leaving AMA Consults: Dr. Vasquez, consult and involvement is appreciated. Patient is observation status as his stay is not likely to exceed 2 midnights. FEN: IV NS, NPO, BMP in the am. VTE prophylaxis: Patient refuses to wear, he is very active. Dispo: unknown at this time Code Status: Full as discussed with patient COVID-19 COVID-19 status: Negative Result date/Date tested (Pos, Neg/Pending): 05/11/20 Quality VTE Deep Vein Thrombosis/Pulmonary Embolism Present on Admission: No
[2020-05-12 01:33] VITALS: O2SAT 92
[2020-05-12] MEDS: HYDROMORPHONE 2 MG INJ IV ×3 (03:51→10:44)
[2020-05-12] MEDS: DEXTROSE 5%-LACTATED RINGERS 1,000 ML 100 ML IV (04:01)
[2020-05-12 04:07] VITALS: BP 108/72; PULSE 74; RESP 25; TEMP 36.7; O2SAT 97
[2020-05-12] MEDS: OXYCODONE IR 5 MG TABLET 15 MG PO (04:19)
[2020-05-12] MEDS: diazePAM 10 MG/2 ML SYRINGE 5 MG IV (04:23)
--- NOTE | 2020-05-12 05:09 | PC.NURSE ---
Addendum entered by Cheri Blandon R.N. 05/12/20 07:34: pt has completed marked amount of go-lytely prep and still has not had bm- this info relayed to sebastian ward in pre-op holding area Addendum entered by Cheri Blandon R.N. 05/12/20 05:45: PT SOUND ASLEEP AT TIME OF BRUSH CLEARER SURVEYING ROUNDING IN ICU- SHE DID NOT AWAKEN PT Original Note: pt with labile mood swings- one moment being nasty and saying nasty things to and about staff as we attempt to care for pt or just after leaving the room- informed him that we would not be tolerating this behavior here and he grumbles around- next visit to his room he is more respectful- conversation is stilted and expansive- HE RATES PAIN 10/10 FOR BILAT HIP PAIN AND REQUESTED PAIN RX- SPECIFICALLY BY NAME- : DILAUDI 2MG IV GIVEN AT 0351 ALONG WITH 25MG IV BENEDRYL ( FOR HIS ANAPHALACTIC REACTION TO IODINE CT CONTRAST) THEN REQUESTED/DEMANDED OXYCODONE THAT WAS PROMISED HIM BY DOCTOR IF PAIN WAS UNCONTROLLED- MEDICATED WITH 15MG PO OXYCODONE PER ORDER AT 0416- HIS DEMANDS WERE ESCALATING HE REQUESTED AND WAS GIVEN 5MG IV VALIUM 0423- INFORMED PT THAT THIS WAS A LOT OF DRUGS AND THEN HE BECAME AGITATED THAT I WAS QUESTIONING HIS PAIN LEVEL - HE ASKED IF HE COULD TALK TO DOCTOR X 2 - REDIRECTED HIS QUESTIONING AND WHEN HE ASKED AGAIN APPROX 30 MINUTES LATER- I NOTIFIED NIGHT BRUSH CLEARER SURVEYING PROVIDER AND SHE HAS THUS FAR DECLINED TO ROUND ON PT. HE IS TOLERATING GO-LYTELY PREP INTAKE BUT HAS NOT HAD A BM YET. HIS COMPLAINT IS BILAT HIP PAIN - REMINDED HIM THAT HE IS ADMITTED FOR BLOODY EMESIS - AND HE MAY HAVE TO WAIT UNTIL HIS ORTHOPEDIC APPT WHICH HE REPORTS IS ON May- USING URINAL - BLOOD DRAEN FROM [facility] FOR AM LABS AND DRESSING CHANGED
[2020-05-12 05:15] LABS: Add Manual Diff / Slide Review NO; Basophils Absolute Auto 0 /uL (0-100); Basophils Percent Auto 0.1 % (0-2); Eosinophils Absolute Auto 0 /uL (0-450); Hematocrit 31.9 % (41-53); Hemoglobin 10.3 g/dL (13.5-17.5); Lymphocytes Absolute Auto 1000 /uL (1100-4500); Lymphocytes Percent Auto 11.9 % (25-40); Mean Corpuscular HGB Conc 32.2 % (30-36); Mean Corpuscular Hemoglobin 26.9 PG (26-34); Mean Corpuscular Volume 83.7 fL (80-100); Monocytes Absolute Auto 300 /uL (0-900); Monocytes Percent Auto 3.8 % (3-14); Neutrophils Absolute Auto 7000 /uL (1500-7000); Neutrophils Percent Auto 84.2 % (50-75); Platelet Count 316 X10^3/uL (150-400); Red Blood Cell Count 3.82 X10^6/uL (4.5-5.9); Red Cell Distribution Width 16.2 % (11.6-14.8); White Blood Cell Count 8.3 X10^3/uL (4.5-11.0)
[2020-05-12 05:22] LABS: Alanine Aminotransferase 19 IU/L (<50); Albumin 4.1 g/dL (3.5-5.0); Albumin Globulin Ratio 1.1 (1.0-2.8); Alkaline Phosphatase 92 U/L (38-126); Aspartate Aminotransferase 39 IU/L (17-59); BUN Creatinine Ratio 19.7 (6-22); Bilirubin Total 0.4 mg/dL (0.2-1.3); Blood Urea Nitrogen 12 mg/dL (9-20); Calcium 9.9 mg/dL (8.4-10.2); Carbon Dioxide 29 mmol/L (22-32); Chloride 101 mmol/L (98-107); Estimated Glomerular Filt Rate > 60.0 mL/min (>60); Globulin 3.7 g/dL (1.7-4.1); Glucose 159 mg/dL (70-100); HEMOLYSIS < 15 (0-50); Magnesium 1.9 mg/dL (1.6-2.3); Potassium 4.5 mmol/L (3.4-5.1); Sodium 138 mmol/L (137-145); Total Protein 7.8 g/dL (6.3-8.2)
[2020-05-12 05:51] LABS: Thyroid Stimulating Hormone 0.361 uIU/mL (0.47-4.68)
[2020-05-12] MEDS: ACETAMINOPHEN 325 MG TABLET 650 MG PO (06:27)
[2020-05-12 07:00] VITALS: O2SAT 96
[2020-05-12] MEDS: FLUoxetine 20 MG CAPSULE 40 MG PO (07:08)
[2020-05-12] MEDS: PANTOPRAZOLE 40 MG VIAL IV (07:08)
[2020-05-12 07:55] VITALS: BP 106/55; PULSE 74; RESP 15; TEMP 36.7; O2SAT 95
--- NOTE | 2020-05-12 08:39 | PC.NURSE ---
Addendum entered by Cheri Blandon R.N. 05/12/20 10:06: pt continuously asking what rx are available and when- explained that we can medicate when he is hurting but he must request at that time - that we won't be waking him up to give him narcotics- he was displeased with this response- but flacc of 1-4 by my exam and pt rates pain / Original Note: THAT DOESN'T FEEL LIKE 2MG OF DILAUDID PT STATED AFTER RATING GENERALIZED PAIN 07/13 AND MEDICATED WITH IV DILAUDID PER MD ORDER- HE DID MENTION HIS HOME MEDICATIONS AND PROVIDED A LIST WHICH HAD NO NAME OR DATE ON IT WITH A LIST OF RX- HE ALSO STATES THAT HE RECEIVED SEVERAL RX IN [place] WHERE HE WAS RECENTLY- LIST COPIED AND PLACED IN PT CHART - STILL NO BOWEL MOVEMENT
[2020-05-12] MEDS: OXYCODONE IR 10 MG TABLET PO ×2 (11:40→14:34)
[2020-05-12] MEDS: ALPRAZolam 0.5 MG TABLET 2 MG PO (11:41)
--- NOTE | 2020-05-12 12:12 | PT-IP ANOTE ---
Attempted to eval pt at 1020 but pt was on the phone consulting with ortho MD regarding his hip issue and requested to be seen later this AM. Attempted 2nd at 1115 & 1130am and pt was discussing with Dr. Cox in his room. Will reattempt evaluation this pm again.
--- NOTE | 2020-05-12 14:16 | PC.NURSE ---
preparing for discharge- many stops of Dr. Cox in hallway to ask for rx - he failed gi prep and there have been no further c/o gut discomfort- taken lunchtime diet well and had huge appetite- removal of cvl and prepping to shower at this time
--- NOTE | 2020-05-12 14:27 | PT.IIE ---
Current Diagnoses Major depressive disorder, single episode, unspecified (05/11/20) Anxiety disorder, unspecified (05/11/20) Other chronic pain (05/11/20) Gastrointestinal hemorrhage, unspecified (05/11/20) Dorsalgia, unspecified (05/11/20) Idiopathic aseptic necrosis of right femur (05/11/20) Idiopathic aseptic necrosis of left femur (05/11/20) Surgery Performed Operation Date: 05/11/20 15:15 Actual Procedures p Esophagogastroduodenoscopy/L subclavian central line insertion(Not Applicable) - Uziel Vasquez MD Operation Date: 05/12/20 10:45 <No data on this case meets the specified criteria> Medical History (Last Reviewed 05/12/20 @ 01:22 by IVY Molina) Avascular necrosis of bones of both hips (Acute) Chronic back pain greater than 3 months duration (Acute) Depression (Acute) Physical Therapy Inpatient Evaluation/Re-Eval M1 PT/OT-IP Prior Functional Status Start: 05/12/20 08:28 Freq: NEEDED Status: Active Protocol: Document 05/12/20 13:36 (Rec: 05/12/20 14:27 [id number]) Medical Review Prior Functional Status Medical History Reviewed Yes Diet/Fluid Consistency Regular Communication no deficits noted. able to make needs known Mobility and Gait independent until 3 months ago . Pt reports he was unable to move his L leg one day 3 months ago and had to call EMT to transfer him to hospital via helicopter. Pt was given a W/C to home after but he was able to mobilize for the past 2months wtihout AD but with significant pain. Activities of Daily Living and IADL's independent without AD for ADLs and IADLs Prior Functional Level (Other details) Pt has been staying on the second level at his mom's client home in [facility]. His mom is a CG for this client. Social History Household Members significant other Living Arrangements House Number of Floors (Floors) One Floor Number of Stairs To Enter/Railing? no LAKIA Home Environment Standard Height Toilet,Walk in Shower Employment Status Unemployed Additional Social History Comment Pt lives in [place] with his GF but his GF is currently away. Pt has been staying on the second level at his mom's client home in [facility] since his new onset of hip pain from 3 months ago. His mom is a CG for this client. He states that he just arrived back from [facility] after having brought his late father's ashes and apparently spent a short stay at a local hospital there due to the same problem. Due to the hospital requiring grady payment, the patient opted to return to the [place] to have a further medical workup. In the process of his stay in the medical facility in [place], they did an x-ray and told him he had osteonecrosis of the left hip. The patient has a stated history of chronic lumbar pain, work related injury of the right shoulder for whom he has not sought surgical attention, in his severe anxiety. He stated that while he was in the health care facility in [place] , he saw a psychiatrist who recommended that he start a course of Seroquel and lithium . He stated that they thought he had depression, anxiety and bipolar. The patient also has history of having gone to a pain clinic and was apparently taking high-dose oxycodone, and alprazolam M2 PT-IP Current Condition Start: 05/12/20 08:28 Freq: NEEDED Status: Active Protocol: Document 05/12/20 13:36 HH (Rec: 05/12/20 14:27 [id number]) Physical Therapy Current Condition Current Condition Evaluation Date 05/12/20 Treatment Diagnosis Acute Onset Date 05/11/20 Weight Bearing Status Weight Bearing Status Full Weight Bearing M3 PT-IP Subjective Start: 05/12/20 08:28 Freq: NEEDED Status: Active Protocol: Document 05/12/20 13:36 (Rec: 05/12/20 14:27 [id number]) Subjective Physical Therapy Visit Type Type Treatment Note Visit Start Time 12:50 Visit Stop Time 13:25 Total Visit Minutes 35 Notes RN stated pt has been using BSC and up to sink counter without FWW. His pain and mobility is inconsistent. Has been complaining pain 10/. Per EMR, Pt was also very agitated with staff last night regarding pain management. 2 code goff were activated. Number of STAFF PHYSICAL THERAPIST Visits 0 Physical Therapy Visit Comments Patient Comments Im not sure if I can move. And i dont know where i can go . Therapy Pain Assessment Pain When Pain Assessed At Rest Pain Present Pain Present Pain Reported Location lt hip Intensity 10 Scale Used Numeric (0 - 10) Description Acute Pain Behaviors Calling Out,Facial Grimacing, Guarding Pain Management Techniques Timing of Activity with Medications M4 PT-IP Mobility and Gait Start: 05/12/20 08:28 Freq: NEEDED Status: Active Protocol: Document 05/12/20 13:36 HH (Rec: 05/12/20 14:27 HH [id number]) PT-Bed Mobility Assessment Rolling Type of Rolling Roll to Left Level of Assist Independent Supine to Sit Supine to Sit Independent Scooting Scooting to Edge of Bed Independent PT-Transfer Assessment Sit to and From Stand Sit to and from Stand Standby Assistance,Contact Guard Assistance,Use of Upper Extremities Equipment Transfer Assistive Device None,Front Wheeled Walker Orthotic/Prosthetic Devices or Brace: No Transfers Transfer Destination Bed,Chair Transfer Technique Stand Step Pivot Transfer Ability Level of Assist Standby Assistance,Contact Guard Assistance,Use of Upper Extremities Comments Mobility Comments Pt was in bed upon PT arrival. He is very talkative and anxious regarding D/C planning and frustration about medication management here in [facility]. This PT reminded him multiple times that our duties focuse on mobility and safety assessment . Pt reports he has not been using AD for mobility for the past few months but limping. He initially completed supine to sit at L side and yelling out pain with significant L hip pain especially during hip ER. He then kept yelling out for pain while standing up from bed and was very unsteady . He then walked with this PT to sink counter for pericare with SBA/ CGA and pt amb with antalgic gait with minimal WB on LLE. He was very easily distracted and constantly talking about his recent experience with his dad and his prior life experience. He then amb in the hallway with FWW for [address] Cox at midpoint. Pt requested for high dosage of Oxycontin and requested to get a ride to [place] so he can take the bus to [facility]. Pt then cont to amb back to his room and returned to chair with poor walker management. Pt cont to be anxious regarding his d/c planning and yelling out for pain. However , pt's pain and his mobility is very inconsistent. This PT witnessed this pt got up and walked around his room without AD and facial grimacing pain after this PT left. Gait Assessment Gait Gait Assistance Required: Standby Assistance,Contact Guard Assist Distance (Feet) 136 Able to Maintain Weight Bearing Status Yes During Gait Assistive Devices Assistive Device Gait Belt,Front Wheeled Walker Orthotic/Prosthetic Devices or Brace: No Gait Deviations General Gait Pattern Antalgic,Decreased Stride Length,Decreased Feet Clearance,Flexed Trunk,Step-to Gait Factors Limiting Gait Function Factors Limiting Gait Function Decreased Activity Tolerance, Decreased Strength,Difficulty Following Directions,Limited Range of Motion,Pain,Poor Balance,Poor Safety Awareness Comments Gait Comments see mobility comments. Stair Climbing Assessment Comments Stair Climbing Comments pt's condo in [place] without LAKIA PT-Balance Assessment Sitting Balance and Reactions Static Sitting Balance Ability Normal Dynamic Sitting Balance Ability Normal Standing Balance and Reactions Static Standing Balance Ability Good Dynamic Standing Balance Ability Fair Device Used FWW M5 PT-IP Objective Assessments Start: 05/12/20 08:28 Freq: NEEDED Status: Active Protocol: Document 05/12/20 13:36 (Rec: 05/12/20 14:27 [id number]) Orientation Orientation/Cognition Level of Alertness Alert Orientation Name,Age,Birthday,Month,Date, Year,Day of Week,Place, Situation Safety Awareness Decreased Safety Awareness Memory Description No Deficits Noted Comments Pt is very anxious and very easily distracted. Pt is extremely talkative and stated he has mental health issues multiple times. Gross Range of Motion Upper Extremity ROM Assessment Within Functional Limits Lower Extremity ROM Assessment Left Impaired Impairments unable to assess d/t pt's pain Strength Upper Extremity Strength Assessment Within Functional Limits Lower Extremity Strength Assessment Bilaterally Impaired Comments Strength Comments unable to assess d/t pt's pain Coordination Assessment Gross Coordination Gross Coordination WNL Sensation Assessment Sensation Gross Sensation WNL M6 PT-IP Treatment Start: 05/12/20 08:28 Freq: NEEDED Status: Active Protocol: Document 05/12/20 13:36 (Rec: 05/12/20 14:27 [id number]) Physical Therapy Treatment Equipment Issued Equipment Type and Company FW for home use M7 PT-IP Assessment and Plan Start: 05/12/20 08:28 Freq: NEEDED Status: Active Protocol: Document 05/12/20 13:36 (Rec: 05/12/20 14:27 [id number]) PT Summary Assessment and Plan Potential Rehabilitation Potential Good Status of Condition at Evaluation Evolving Summary Impairments Pain,ROM,Strength,Balance,Tone ,Cognition,Bed Mobility, Transfers,Gait,Activity Tolerance Assessment Summary This is a high complexity evaluation for this 44yo male admitted to for ongoing L hip vascular necrosis. Per EMR , pt has mental health issues and has been very uncooperative with staff here in . He is very anxious and easily distracted upon assessment. Pt overall is very unsafe with poor safety awareness and continously yell out for his 10/10 L hip pain. However, per nursing staff, pt has been mobilizing himself in the room without AD and this PT also saw this pt ambulating in his room independently without AD after finishing PT assessment. In my professional opinion, I was not able to provide an accurate assessment based on aforementioned issues since this is more likely to be a placement and pain management issue than actual mobility concern, but dispensing a FWW will still be a good decision for safty purposes. D/C pt from PT since pt is inappropriate for cont therapy service Frequency of Treatment Frequency Of Treatment Discharge Recommendations To Nursing Amount of Assist Needed Independent,Standby Assistance Discharge Recommendations PT Discharge Recommendations Home,Home with Assistance Transportation Needs at Discharge Private Vehicle
[2020-05-12] MEDS: OXYCODONE ER 10 MG TAB 20 MG PO (14:28)
--- NOTE | 2020-05-12 14:35 | PT-IP ANOTE ---
This PT was going to dispense FWW to pt upon pt's D/C. However, pt was able to amb with normal gait independently. Asked him again if he needed one, pt stated I dont need one at this point.
--- NOTE | 2020-05-12 16:33 | CM.DPNOTE ---
DC Note Patient medically stable to DC the hospital today. This morning, Dr Cox had anticipated that patient would be discharged home w/ f/u scheduled at [facility], she had reviewed this w/patient and he was agreeable to such. This CORN MILLER was requested to assist w/ transportation. Worked on this DCP throughout the day w/ Dr Cox and NIKKIE Alonzo. NIKKIE Alonzo shared w/this CORN MILLER this morning that she suspected patient may be drug seeking and behavior seemed suspicious, patient w/documented psychiatric history, home med, Xanax given in anticipation of DC. Patient did in fact escalate throughout the day and RN Coordinator José Miguel and CNO Beata Gutiérrez were made aware of patient's escalation as DC planning efforts were discussed w/patient throughout the day. This morning patient complained of not being able to ambulate out of bed and by this afternoon at approx 1300 patient was walking the hallway outside his room. Physical therapy assessed today and cleared patient for return home. This CORN MILLER had multiple, lengthy circular conversations w/patient, patient requested assist in getting home to [place]. Patient states he has insurance pending (currently self pay) and has left his wallet at home (?) Patient denies any friends or family that could pick him up. This CORN MILLER suggested that a taxi could be arranged to a park and ride in order for him to then catch a transfer bus/shuttle to his home in [place]. Merlisa was arranged for p/u from [place] and take patient to the [facility] park and ride Later learned that Dr Cox prescribed approx 7 medications, hard scripts, to be filled for patient before he left . Self Pay. The prescriptions included psych meds and narcotics. Reviewed this w/ patient, who confirmed he has no insurance and no ability to pay for said medications. Patient again began to escalate. Spoke w/ Dr Cox and Beata Gutiérrez who suggested [facility] be approached and requested to fill approx 3 days worth of psych meds/pain meds to get him through the w/e until he could f/u w/ a provider Friday. This CORN MILLER and Dr Cox coordinated w/ Gilberto at [facility] and he was agreeable to fill and use medical relief fund in the total quoted amount of $35.74 for small amounts of Adderral, Spelter, Xanax, Seroquel, and short acting Oxycodone. These were provided to patient before he left [facility]
[2020-05-12] MEDS: ALPRAZolam 0.5 MG TABLET 1 MG PO (16:46)
--- NOTE | 2020-05-12 16:59 | PC.NURSE ---
1630- Patient given discharge instructions but is demanding narcotic medication now. Patient was told he will not get additional narcotics. Patient became verbally aggressive, and assaultive to staff. Security is with patient and the coordinator is attempting to escort the patient out. 911 called due to patients threatening behaviour. Patient was given enough medication to get him through four days per orders by .
--- NOTE | 2020-05-13 16:06 | P.DS_ITS ---
History of Present Illness History of Present Illness Date Patient Seen: 05/12/20 Chief complaint: abd pain, vomiting blood, was admitted in DC Narrative: Sampson Villa is a 44-year-old male who presented to the emergency department with a complaint of hematemesis and hematochezia. He states that he just arrived back from [facility] after having brought his late father's ashes and apparently spent a short stay at a local hospital there due to the same problem. Due to the hospital requiring grady payment, the patient opted to return to the [facility] to have a further medical workup. In the process of his stay in the medical facility in [place], they did an x-ray and told him he had osteonecrosis of the left hip. The patient has a stated history of chronic lumbar pain, work related injury of the right shoulder for whom he has not sought surgical attention, in his severe anxiety. He stated that while he was in the health care facility in [place], he saw a psychiatrist who recommended that he start a course of Seroquel and lithium. He stated that they thought he had depression, anxiety and bipolar. The patient also has history of having gone to a pain clinic and was apparently taking high-dose oxycodone, and alprazolam. He states that he is no longer taking alprazolam and has not been on it since he left for [place] as he ran out. In the emergency department Dr. Vasquez was consulted and performed an upper endoscopy which was negative for any upper GI bleed and recommended bowel prep for a lower GI scope on 05/12. I received a phone call from Dr. Vasquez who requested that we order a psych consult on the patient as he woke up from anesthesia very agitated and yelling at the nurses. The patient did calm down when I was in the room with him and asked me a number of questions about the avascular necrosis. The patient has had a history of weight training and competition and has taken supplements in the past which ephedrine and possibly steroids. He denies a history of IV drug use. He denies a family history of avascular necrosis. Vital signs: Temp is 97.8?, blood pressure 108/56, heart rate 95, respiratory rate 16, oxygen saturation of 91% on 2 L, P is 70 7.1 kg with a BMI of 23.7. WBC is 4.0, RBC 4.04, hemoglobin 10.9, hematocrit 33.5, platelet count 321. Sodium 135, potassium 4.4, chloride 99, CO2 26, BUN 17, creatinine 0.61, GFR greater than 60, glucose 136, calcium 10.1, total bili 0.5, AST 55, ALT 21, alk- phos 95, lipase 20, COVID-19 negative. Toxicology was positive for oxycodone and benzodiazepines. Discharge Providers Provider Date of admission: 05/11/20 17:36 Discharge Date: 05/12/20 Consults: 05/11/20 12:03 Consult to FACTORY ENGINEER - Visual Coordinator Stat Comment: 05/11/20 19:51 Consult to Discharge Planning Routine Comment: Consult to Physical Therapy Evaluate & Treat Comment: Physician Instructions: Evaluate and Treat 05/11/20 21:22 Consult to Physician Routine Comment: Consulting Provider: Noman Duff Reason for consultation: Recommended for depression and bipolar medications in [place], severe anxiet Has provider been notified: No 05/12/20 13:31 Consult to Physical Therapy Evaluate & Treat Comment: Physician Instructions: FWW For Home use Discharge provider: Miracle Cox MD Summary Hospital Course Discharge Diagnosis: 1. Upper GI bleed 2. Upper endoscopy negative for source of bleed, gastritis noted at the pre- pyloric area, recommendation for outpatient colonoscopy 3. He probable bipolar affective disorder 4. Avascular necrosis of the bilateral hip 5. Chronic pain Hospital Course: Patient was admitted to the hospital for evaluation of and possible upper GI bleed. He underwent upper endoscopy under anesthesia which showed no source of bleeding. There was some pre-pyloric gastritis noted. The patient did have a colon prep. However he had no stool output and was felt not to be ready for colonoscopy. Recommendations were made for him to have an outpatient colonoscopy. The patient was quite agitated angry and upset. He demanded further narcotic medication. Patient was yelling and screaming at staff. Recommendations were made for him to be discharged home for an outpatient colonoscopy. After multiple attempts at discussing a plan with him the patient agreed to discharge. He provided medical records from [facility] outlining an outpatient regimen for him including lithium, Seroquel, Xanax. These medications were prescribed for him. In addition the patient was given oxycodone for his bilateral avascular necrosis and chronic back pain. He is to follow-up with the [facility] on May 17 for an orthopedic appointment. The patient reports he has a primary care appointment on May 26. Patient became somewhat agitated angry and hostile. He was excoriated out of the building with the aid of the police. Patient was given prescriptions for medications via the [facility] as he was unable to pay for these. He was discharged under duress with security in the place. Prior to discharge patient did complain of bilateral hip pain. Was concerned that he would not be able to ambulate. He was seen by Physical therapy per that he was able to ambulate. Patient was able to ambulate independently and was discharged accordingly. Status at Discharge Cognitive/behavioral status at discharge: at baseline, oriented Functional status at discharge: independent ambulation Overall status at discharge: patient is back to baseline Time Spent with Patient Time spent: Greater than 30 minutes Exam Vital Signs (past 8 hours): Oxygen Delivery Method Room Air Oxygen Flow Rate 0 Narrative Exam Narrative: Agitated white male lying in bed Lungs: Clear to auscultation Cardiac exam: Regular rate rhythm normal S1-S2 Abdomen: Soft nontender nondistended Extremities: No edema Objective Labs Result Diagrams: 05/12/20 04:50 05/12/20 04:50 Discharge Plan Discharge Plan Patient Disposition: Home Discharge orders & Medications Prescriptions: New sertraline [Zoloft] 50 mg Tablet 50 mg PO BEDTIME 30 Days RF: 0 oxycodone 10 mg Tablet 10 mg PO Q4HR PRN (Reason: Pain, Severe (7-10)) Qty: 30 RF: 0 oxycodone [OxyContin] 10 mg Tablet,Oral Only,Ext.Rel.12 Hr 20 mg PO BID Qty: 30 RF: 0 alprazolam [Xanax] 1 mg tablet 1 mg PO TID PRN (Reason: anxiety) Qty: 30 RF: 0 lithium carbonate 300 mg capsule 300 mg PO BID Qty: 60 RF: 0 methocarbamol 500 mg tablet 500 mg PO QID Qty: 30 RF: 0 dextroamphetamine-amphetamine [Adderall] 30 mg tablet 30 mg PO BID Qty: 60 RF: 0 quetiapine [Seroquel] 200 mg tablet 200 mg PO BEDTIME Qty: 30 RF: 0 Continued dextroamphetamine 30 mg Tablet 30 mg PO BID RF: 0 methocarbamol 500 mg Tablet 500 mg PO Q6HR PRN (Reason: Muscle Spasm) RF: 0 lithium carbonate 300 mg Capsule 600 mg PO BEDTIME RF: 0 quetiapine 100 mg Tablet 100 mg PO BEDTIME RF: 0 Follow up/Referrals: Hans Sorensen MD [Physician] - (needs outpatient Colonoscopy for evaluation of GI Bleed. Was to be done in the hospital but prep not completed) Noman Duff MD [Physician] - Diet/Activity/Treatments Diet: Diet as Tolerated and Regular Visit Report/Discharge Packet Instructions: Gastrointestinal Bleeding Visit Report Forms: Patient Portal/API, Stroke Signs & Symptoms Discharge Data Attending Provider: Manuela Cuellar Admit Date/Time: 05/11/20 17:36 Discharges patient from system. Discharge Date/Time: 05/12/20 16:45 Quality VTE Deep Vein Thrombosis/Pulmonary Embolism Present on Admission: No
== END 2020-05-12 16:45 | disposition home or self-care (01) ==
LOC: ED 15:17 → AC 17:37 → ICU 18:26
PROVIDERS: Nurse Practitioner Family; Specialist; Admitting Provider Internal Medicine; Emergency Provider Emergency Medicine; Referring Provider Emergency Medicine; Visit Provider Internal Medicine
PROC: 0DJ08ZZ Inspection of Upper Intestinal Tract, Via Natural or Artificial Opening Endoscopic (ICD-10-PCS; CPT 43235; principal; 2020-05-11 15:15)
DX: K29.70 Gastritis, unspecified, without bleeding (principal); R10.9 Unspecified abdominal pain; K92.1 Melena; M54.9 Dorsalgia, unspecified; G89.29 Other chronic pain; M87.052 Idiopathic aseptic necrosis of left femur; M87.051 Idiopathic aseptic necrosis of right femur; F41.9 Anxiety disorder, unspecified; F32.9 Major depressive disorder, single episode, unspecified; R45.1 Restlessness and agitation; Z11.59 Encounter for screening for other viral diseases
CPT/HCPCS: 43235; 36415; 36592; 71045; 74177; 80053; 80305; 81003; 83690; 83735; 84443; 85014; 85018; 85025; 86617; 87635; 93005; 93010; 96361; 96374; 96375; 96376; 97163; 99285; 99291; G0378; C9113; J0330; J1100; J1170; J1200; J2405; J2704; J2930; J3010; J3360; J7121; Q9967